=== PATIENT | male | born 1990 | race Two or more races ===

== ENCOUNTER 2020-05-02 03:27 | Emergency (ER) | payer MEDICAID ==
[~2020-05-02] VITALS: Ht 177.8 cm; Wt 70.3 kg
[2020-05-02] MEDS ORDERED: diphenhdrAMINE HCL 50 MG/1 ML VL IM ONE (04:45)
[2020-05-02] MEDS ORDERED: cloNIDine HCL 0.1 MG TAB PO ONE (04:45)
[2020-05-02 10:28] VITALS: BP 145/114
== END 2020-05-02 10:51 | disposition home or self-care (01) ==
LOC: ER 03:27
DX: R21 Rash and other nonspecific skin eruption (principal); I10 Essential (primary) hypertension
CPT/HCPCS: 96372; 99283; J1200